=== PATIENT | male | born 1950 | race Caucasian/White ===

== ENCOUNTER 2020-04-22 09:08 | Inpatient (IN) | payer MEDICARE, OTHER ==
[~2020-04-22 09:08] MED LIST: COUMADIN2.5 MG PO; COUMADIN5 MG PO; KEPPRA XR500 MG PO; PANTOPRAZOLE SO40 MG PO; PERCOCET 5-3251 EACH PO
[2020-04-22 11:05] LABS: BASOPHIL 0.6 % (0-2); EOSINOPHIL 3.3 % (0-7); HCT 42.2 % (42.0-52.0); HGB 13.2 g/dl (13.2-18.0); LYMPHOCYTE 14.3 % (15-48); MCHC 31.3 g/dL (32.0-36.0); MCV 86.3 fL (78.0-100.0); MPV 10.7 fL (6.0-9.5); NEUTROPHIL 75.5 % (41-80); NRBC 0; PLT 285 K/uL (150-400); RBC 4.89 M/uL (4.70-6.00); RDW 12.8 % (11.5-14.0); WBC 9.9 K/uL (4.0-10.5)
[2020-04-22 11:21] LABS: LACTIC ACID 2.2 mmol/L (0.4-1.9)
[2020-04-22 11:23] LABS: PTT 85.5 SECONDS (22.2-34.7)
[2020-04-22 11:39] LABS: BILIRUBIN - TOTAL 0.3 mg/dL (0.2-1.0); BUN/CREAT RATIO (CALC) 8.4 RATIO; CREATININE 0.83 mg/dL (0.67-1.17); POTASSIUM 3.3 mmol/L (3.5-5.1)
[2020-04-22 11:47] LABS: INR 4.06 (0.9-1.2); PROTHROMBIN TIME 37.7 SECONDS (11.4-13.6)
[2020-04-22 11:48] LABS: CORONAVIRUS 2019 SARS-COV-2 NEGATIVE (NEGATIVE); INFLUENZA A NAA NEGATIVE (NEGATIVE)
[2020-04-22] MEDS ORDERED: WARFARIN SODIU2.5 MG PO (14:15)
[2020-04-22] MEDS ORDERED: WARFARIN SODIUM5 MG PO (14:16)
[2020-04-22] MEDS ORDERED: CARAFATE1 GM PO (14:17)
[2020-04-23 05:47] LABS: INR 4.52 (0.9-1.2)
[2020-04-23 12:04] LABS: BILIRUBIN NEGATIVE (NEGATIVE); BLOOD NEGATIVE Ery/uL (NEGATIVE); COLOR YELLOW (YELLOW); GLUCOSE (U) NORMAL (NORMAL); LEUKOCYTES NEGATIVE Leu/uL (NEGATIVE); NITRITE NEGATIVE (NEGATIVE); PROTEIN NEGATIVE (NEGATIVE); SPECIFIC GRAVITY >=1.030 (1.001-1.030); UROBILINOGEN 0.2 mg/dL (0.2-1.0)
[2020-04-23 12:06] LABS: CLARITY SLIGHTLY HAZY (CLEAR)
[2020-04-24 05:43] LABS: HCT 36.4 % (42.0-52.0); HGB 11.3 g/dl (13.2-18.0); MCH 26.7 pg (25.0-31.0); MCV 86.1 fL (78.0-100.0); MPV 10.9 fL (6.0-9.5); RBC 4.23 M/uL (4.70-6.00); RDW 12.9 % (11.5-14.0); WBC 7.3 K/uL (4.0-10.5)
[2020-04-24 06:02] LABS: BUN/CREAT RATIO (CALC) 9.2 RATIO; CREATININE 0.65 mg/dL (0.67-1.17); POTASSIUM 3.5 mmol/L (3.5-5.1)
[2020-04-24 06:05] LABS: INR 4.02 (0.9-1.2); PROTHROMBIN TIME 37.4 SECONDS (11.4-13.6)
[2020-04-25 03:50] LABS: BASOPHIL 0.4 % (0-2); EOSINOPHIL 5.4 % (0-7); HCT 35.2 % (42.0-52.0); HGB 10.9 g/dl (13.2-18.0); LYMPHOCYTE 14.4 % (15-48); MCH 26.8 pg (25.0-31.0); MCV 86.7 fL (78.0-100.0); MONOCYTE 9.4 % (0-12); MPV 10.5 fL (6.0-9.5); NEUTROPHIL 70.1 % (41-80); NRBC 0; PLT 211 K/uL (150-400); RBC 4.06 M/uL (4.70-6.00); RDW 12.9 % (11.5-14.0); WBC 7.2 K/uL (4.0-10.5)
[2020-04-25 04:02] LABS: INR 3.68 (0.9-1.2); PROTHROMBIN TIME 34.9 SECONDS (11.4-13.6)
[2020-04-25 04:47] LABS: CREATININE 0.67 mg/dL (0.67-1.17); MAGNESIUM 1.4 mg/dL (1.8-2.4); PHOSPHORUS 3.2 mg/dL (2.6-4.7); POTASSIUM 3.3 mmol/L (3.5-5.1)
[2020-04-25] MEDS ORDERED: LEVAQUIN750 MG PO (12:28)
[2020-04-25] MEDS ORDERED: PERCOCET 5-3251 EACH PO (12:28)
== END 2020-04-25 13:38 | disposition home health service (06) | DRG 871 ==
LOC: FER 09:08 → FTCU 11:53
PROVIDERS: Emergency Medicine; Internal Medicine; ADMIT Hospitalist
DX: A41.9 Sepsis, unspecified organism (principal); J18.9 Pneumonia, unspecified organism; K85.90 Acute pancreatitis without necrosis or infection, unspecified; J96.01 Acute respiratory failure with hypoxia; S22.42XA Multiple fractures of ribs, left side, initial encounter for closed fracture; K86.1 Other chronic pancreatitis; J44.0 Chronic obstructive pulmonary disease with (acute) lower respiratory infection; R65.20 Severe sepsis without septic shock; F17.210 Nicotine dependence, cigarettes, uncomplicated; J44.9 Chronic obstructive pulmonary disease, unspecified; K59.00 Constipation, unspecified; F10.10 Alcohol abuse, uncomplicated; K80.80 Other cholelithiasis without obstruction; W00.0XXA Fall on same level due to ice and snow, initial encounter; K44.9 Diaphragmatic hernia without obstruction or gangrene; Z20.822 Contact with and (suspected) exposure to COVID-19; Z86.711 Personal history of pulmonary embolism; Z99.81 Dependence on supplemental oxygen; Z88.5 Allergy status to narcotic agent; Z79.899 Other long term (current) drug therapy; Z79.01 Long term (current) use of anticoagulants
CPT/HCPCS: 36415; 36600; 71250; 80048; 80053; 81003; 82803; 83605; 83690; 83735; 83880; 84100; 84145; 85025; 85610; 85730; 87040; 87070; 87205; 93005; 94640; 94664; 94667; 94668; 97161; 97165; 97530; C9113; J1170; J1885; J1956; J2405; J3475; J7030; U0002